=== PATIENT | female | born 1975 | race African-American/Black ===

== ENCOUNTER 2017-07-23 19:49 | Emergency (ER) | payer OTHER ==
[~2017-07-23] VITALS: Ht 175.3 cm; Wt 123.6 kg
[~2017-07-23 19:49] MED LIST: CELEXA40 MG PO; FOLIC ACID 11 MG/TA1 PO; HCTZ12.5TAB PO; MULTI VITAMINS1 TAB PO; NEXIUM 40MG40 MG PO; NORCO 325 MG-7.1 TAB PO; VALTREX 50500 MG/TAB PO; VITAMIN C500 MG PO; VITAMIN D32000 I1 PO; WELLBUTRIN 75MG75 MG PO
[2017-07-23 19:59] VITALS: BP 130/78
[2017-07-23 20:44] LABS: BASO % 0.3 % (0.0-2.0); EOS # 0.2 (0.0-0.7); EOS % 1.7 % (0-4.0); GRAN # 10.5 (1.4-6.5); GRAN % 83.2 % (42.2-75.2); HEMOGLOBIN 12.2 g/dl (12.5-16.0); LYMPH % 7.6 % (20.0-51.0); MEAN CELL VOLUME 94 fl (80.0-100.0); MEAN CORPUSCULAR HEMOGLOBIN 32 pg (27.0-31.0); MEAN CORPUSCULAR HGB CONC 34 g/dl (33.0-37.0); MEAN PLATELET VOLUME 9.1 fl (7.4-10.4); MONO # 0.9 (0.1-0.6); MONO % 6.8 % (1.7-9.3); PLATELET COUNT 318 K/mm3 (130-400); RED BLOOD COUNT 3.82 M/mm3 (4.10-5.30); REDCELL DISTRIBUTION WIDTH-CV 13.2 % (11.5-14.5)
[2017-07-23 20:49] LABS: HEMATOCRIT 35.7 % (37.0-47.0); PROTHROMBIN TIME 11.6 SECONDS (9.7-12.8)
[2017-07-23 20:52] LABS: PARTIAL THROMBOPLASTIN TIME 42.2 SECONDS (26.0-37.0)
[2017-07-23 20:57] LABS: ALBUMIN 4.2 gm/dL (3.5-5.0); BILIRUBIN,TOTAL 0.4 mg/dL (0.0-1.0); C-REACTIVE PROTEIN 0.6 mg/dL (0.0-0.9); CALCIUM 9.4 mg/dL (8.4-10.2); CREATININE, serum 0.98 mg/dL (0.52-1.25); POTASSIUM 4.1 mmol/L (3.4-5.0); TOTAL PROTEIN 8.4 gm/dL (6.4-8.2)
[2017-07-23] MEDS ORDERED: DOXYCYCLINE 10100 MG PO (21:54)
[2017-07-23 22:10] VITALS: PULSE 89; TEMP 101.3
== END 2017-07-23 22:11 | disposition home or self-care (01) ==
LOC: COL.ER 19:49
PROVIDERS: Physician Assistant
DX: L03.116 Cellulitis of left lower limb (principal); J45.909 Unspecified asthma, uncomplicated; F17.210 Nicotine dependence, cigarettes, uncomplicated; Z98.890 Other specified postprocedural states
CPT/HCPCS: J7030

== ENCOUNTER 2018-07-14 10:29 | Emergency (ER) | payer OTHER ==
[~2018-07-14] VITALS: Ht 177.8 cm; Wt 131.8 kg
[~2018-07-14 10:29] MED LIST changes: +DOXYCYCLINE 10100 MG PO
[2018-07-14 10:37] VITALS: BP 141/81
[2018-07-14] MEDS ORDERED: LEXAPRO20 MG PO (10:48)
[2018-07-14 12:15] LABS: COLLECTION METHOD CLEAN CATCH
[2018-07-14 12:30] LABS: MUCOUS Present /lpf; PH 5 (5-8); SQUAMOUS EPITHELIAL 0-2 /hpf; URINE APPEARANCE Clear; URINE BACTERIA None Seen /hpf; URINE BILIRUBIN Negative (NEGATIVE); URINE BLOOD Negative (NEGATIVE); URINE COLOR Yellow; URINE GLUCOSE Negative (NEGATIVE); URINE KETONE Negative (NEGATIVE); URINE LEUKOCYTE ESTERASE Negative (NEGATIVE); URINE NITRATE Negative (NEGATIVE); URINE PROTEIN(semi-quant) 2+ (NEGATIVE); URINE RBC 0-2 /hpf; URINE UROBILINOGEN Negative (NEGATIVE)
[2018-07-14] MEDS ORDERED: LIDODERM 5% PATC1 EA TP (12:43)
[2018-07-14] MEDS ORDERED: FLEXERIL 1010 MG/TAB PO (12:43)
[2018-07-14 12:55] VITALS: PULSE 43; TEMP 98.7
== END 2018-07-14 12:55 | disposition home or self-care (01) ==
LOC: COL.ER 10:29
PROVIDERS: Physician Assistant
DX: S39.012A Strain of muscle, fascia and tendon of lower back, initial encounter (principal); K21.9 Gastro-esophageal reflux disease without esophagitis; Z90.89 Acquired absence of other organs; Z98.84 Bariatric surgery status; X50.0XXA Overexertion from strenuous movement or load, initial encounter
CPT/HCPCS: J1885

== ENCOUNTER 2018-07-24 10:08 | Outpatient (RCR) | payer OTHER ==
[~2018-07-24 10:08] MED LIST changes: +FLEXERIL 1010 MG/TAB PO; +LEXAPRO20 MG PO; +LIDODERM 5% PATC1 EA TP
== END 2018-10-15 | disposition still patient (30) ==
LOC: WSOH
DX: S39.012A Strain of muscle, fascia and tendon of lower back, initial encounter (principal); X50.0XXA Overexertion from strenuous movement or load, initial encounter; Y93.F9 Activity, other caregiving; Y92.129 Unspecified place in nursing home as the place of occurrence of the external cause; Y99.0 Civilian activity done for income or pay